=== PATIENT | female | born 1985 | race Caucasian/White ===

== ENCOUNTER 2016-07-31 23:33 | Emergency (ER) ==
[2016-07-31 23:43] VITALS: BP 119/79; TEMP 98.7; BMI 20.7
[2016-07-31] MEDS ORDERED: PHENERGAN 25 MG/ML VIAL IM STA (23:49)
[2016-07-31] MEDS ORDERED: MORPHINE 4 MG/ML SYRINGE IM STA (23:49)
[2016-08-01 00:07] LABS: BASOPHILS % (AUTO) 0.4 % (0.0-3.0); EOSINOPHILS # (AUTO) 0.1 K/ul (0.0-0.7); EOSINOPHILS % (AUTO) 1.3 % (0.0-7.0); HEMATOCRIT 39.8 % (37.0-47.0); HEMOGLOBIN 13.5 g/dl (12.0-16.0); IMMATURE GRANULOCYTE % (AUTO) 0.1 % (0.0-5.0); LYMPHOCYTES # (AUTO) 2.4 K/uL (0.60-3.4); LYMPHOCYTES % (AUTO) 32.3 (10.0-50.0); MEAN CORPUSCULAR HEMOGLOBIN 30.1 pg (27.0-31.0); MEAN CORPUSCULAR HGB CONC 33.9 (31.8-35.4); MEAN CORPUSCULAR VOLUME 88.8 fl (81.0-99.0); MONOCYTES # (AUTO) 0.5 K/uL (0.4-2.0); MONOCYTES % (AUTO) 6.6 (0-10); NEUTROPHILS # (AUTO) 4.5 K/ul (2.0-6.9); NEUTROPHILS % (AUTO) 59.3; PLATELET COUNT 265 10^3/uL (140-440); RED BLOOD COUNT 4.48 10^6/ul (4.20-5.40); WHITE BLOOD COUNT 7.55 K/ul (4.6-10.2)
[2016-08-01 00:08] LABS: BILIRUBIN,URINE Negative (NEGATIVE); KETONES,URINE Negative (NEGATIVE); LEUKOCYTE ESTERASE ,URINE Negative (NEGATIVE); NITRITE,URINE Negative (NEGATIVE); PH,URINE 5.5 (5-9); PROTEIN,URINE Negative (NEGATIVE); URINE, BLOOD Trace-intact (NEGATIVE)
[2016-08-01 00:09] LABS: ADD URINE MICROSCOPIC YES
[2016-08-01 00:14] LABS: URINE PREGNANCY INTERNAL QC INTERNAL QC VALID
[2016-08-01 00:27] LABS: ALBUMIN 4.1 g/dL (3.4-5.0); ALBUMIN/GLOBULIN RATIO 1.46; ANION GAP 13.6; BILIRUBIN,TOTAL 0.24 mg/dL (0.00-1.20); BUN/CREATININE RATIO 18.42; CALCIUM 9.4 mg/dL (8.2-10.2); CREATININE 0.76 mg/dL (0.60-1.30); POTASSIUM 3.6 mmol/L (3.5-5.10); TOTAL PROTEIN 6.9 g/dL (6.4-8.2)
[2016-08-01 00:40] LABS: ERYTHROCYTE SEDIMENTATION RATE 7 mm/hr (0-20); ESR INTERNAL QC INTERNAL QC VALID
--- NOTE | 2016-08-01 00:55 | CT ---
EXAM: CT of the abdomen and pelvis without contrast. HISTORY: Abdominal pain. PROCEDURE: Contiguous axial CT images of the abdomen and pelvis without contrast with coronal and s agittal reformats. FINDINGS: The liver, gallbladder, pancreas, spleen, adrenal glands and kidneys are normal in appear ance. The abdominal aorta is normal in appearance. There is a partial right colectomy. There is f ecal stasis in the colon. No bowel obstruction. No free fluid or free air in the abdomen or pelvis . The bladder is minimally filled with no abnormality identified. Uterus is unremarkable. The bon y structures and soft tissues are unremarkable. Impression: Fecal stasis in the colon. Partial right colectomy.
--- NOTE | 2016-08-01 01:10 | ED.PDOC ---
General ED Provider: Dr. ADOLFO SAMANIEGO-ER Chief Complaint: Abdominal Pain Stated Complaint: im hurting--im scheduled to get hyst in 2 weeks Time Seen by Physician: 23:40 Mode of Arrival: Walk-In Information Source: Patient, Family Exam Limitations: No limitations Primary Care Provider: ADOLFO SAMANIEGO Nursing and Triage Documentation Reviewed and Agree: Yes GI Complaint Exam - Abdominal Pain Complaint/Exam Onset: Gradual Duration: several hours Symptoms Are: Still present Timing: Constant Initial Severity: Mild Current Severity: Mild Location of Pain: Diffuse Character: Reports: Dull, Aching Aggravating: Reports: None Alleviating: Reports: None Associated Signs and Symptoms: Denies: Diaphoresis, Fever, Cough, Chest pain, Dizziness, Back pain, Constipation, Blood in stool, Dysuria, Urinary frequency, Decreased urine output, Decreased appetite, Vaginal bleeding, Nausea, Vomiting, Diarrhea, Sore throat, Decreased activity Related History: Reports: Similar episode Ovarian Torsion Risk Factors: Reports: Reproductive age Surgical Obstruction Risk Factors: Reports: Prior abdominal surgery Related Surgical History: Reports: Appendectomy, Bowel Resection Patient Rh Status: Unknown Abdominal Findings: Present: None Differential Diagnoses: Constipation, Diverticulitis, Pancreatitis, Renal Colic , Ureteral Stone, UTI Review of Systems - Review Of Systems Constitutional: Reports: No symptoms Eyes: Reports: No symptoms Ears, Nose, Mouth, Throat: Reports: No symptoms Respiratory: Reports: No symptoms Cardiac: Reports: No symptoms GI: Reports: Abdominal pain : Reports: No symptoms Musculoskeletal: Reports: No symptoms Skin: Reports: No symptoms Neurological: Reports: No symptoms Endocrine: Reports: No symptoms Hematologic/Lymphatic: Reports: No symptoms All Other Systems: Reviewed and Negative Past Medical History - Past Medical History Previously Healthy: No Endocrine: Reports: None Cardiovascular: Reports: None Respiratory: Reports: None Hematological: Reports: None Gastrointestinal: Reports: Other (bowel obstruction history) Genitourinary: Reports: None Neuro/Psych: Reports: Migraine (05/28/[address] head), Anxiety, Depression, Bipolar Disorder Musculoskeletal: Reports: None Cancer: Reports: None Last Menstrual Period: JUL 17 2106 Other Pertinent Past Medical History: fibromyalgia - Surgical History General Surgical History: Reports: , Other (BOWEL OBSTRUCTION, SMALL INTESTINE PARTIALLY REMOVED). Denies: Hysterectomy ( ablation ) - Family History Family History: Reports: Unknown - Social History Smoking Status: Former smoker Hx Substance Use: No Alcohol Screening: Occasionally Lives: With family - Immunizations Tetanus Shot up to Date: Yes Physical Exam - Physical Exam Appearance: Well-appearing, No pain distress, Well-nourished Pain Distress: Mild Eyes: LANCE, EOMI, Conjunctiva clear ENT: Ears normal Neck: Supple Respiratory: Airway patent, Breath sounds clear, Breath sounds equal, Respirations nonlabored Cardiovascular: RRR, Pulses normal, No rub, No murmur GI/: Soft, Nontender, No masses, Bowel sounds normal, No Organomegaly Musculoskeletal: Normal strength, ROM intact, No edema, No calf tenderness Skin: Warm, Dry, Normal color Neurological: Sensation intact, Motor intact, Reflexes intact, Cranial nerves intact, Alert, Oriented Psychiatric: Affect appropriate Interpretation - Radiology Interpretation Radiology Interpretation By: Radiologist Radiology Results: Positive Exam Interpreted: CT Scan Re-Evaluation - Re-Evaluation Time of Re-Evaluation: 01:11 Status: Improved Vital Signs Stable: Yes Pain Level: 2 Appearance: NAD Lungs: Clear Skin: Warm and Dry Neuro: Alert and Oriented X3 CV: RRR Critical Care Note - Critical Care Note Total Time (mins): 0 Course - Course Hematology/Chemistry: 07/31/16 23:55 07/31/16 23:55 Orders, Labs, Meds: Lab Review 07/31/16 23:55 WBC 7.55 RBC 4.48 Hgb 13.5 Hct 39.8 MCV 88.8 MCH 30.1 MCHC 33.9 RDW Coeff of Gem 12.8 Plt Count 265 Immature Gran % (Auto) 0.1 Neut % (Auto) 59.3 Lymph % (Auto) 32.3 Davison % (Auto) 6.6 Eos % (Auto) 1.3 Baso % (Auto) 0.4 Immature Gran # (Auto) 0.0 Neut # 4.5 Lymph # 2.4 Davison # 0.5 Eos # 0.1 Baso # 0.0 ESR 7 Sodium 142 Potassium 3.6 Chloride 108 H Carbon Dioxide 24 Anion Gap 13.6 BUN 14 Creatinine 0.76 Estimated GFR (MDRD) 89.00 BUN/Creatinine Ratio 18.42 Glucose 94 Calcium 9.4 Total Bilirubin 0.24 AST 12 L ALT 10 L Alkaline Phosphatase 51 Total Protein 6.9 Albumin 4.1 Globulin 2.8 Albumin/Globulin Ratio 1.46 Amylase 49 Lipase 23 Urine Color Yellow Urine Clarity Clear Urine pH 5.5 Ur Specific [place] 1.025 Urine Protein Negative Urine Glucose (UA) Negative Urine Ketones Negative Urine Blood Trace-intact Urine Nitrite Negative Urine Bilirubin Negative Urine Urobilinogen 0.2 Ur Leukocyte Esterase Negative Urine Microscopic RBC 2-5 Ur Squamous Epith Cells 10-20 Hyaline Casts 10-20 RBC Casts 5-10 Urine Test Negative Orders Category Date Time Status AMYLASE Stat LAB 07/31/16 23:55 Completed CBC W/ AUTO DIFF Stat LAB 07/31/16 23:55 Completed COMPREHENSIVE METABOLIC PANEL Stat LAB 07/31/16 23:55 Completed ESR Stat LAB 07/31/16 23:55 Completed LIPASE Stat LAB 07/31/16 23:55 Completed URINALYSIS C & S IF INDICATED Stat LAB 07/31/16 23:55 Completed URINE Stat LAB 07/31/16 23:55 Completed Morphine Sulfate [Morphine 4 mg/ml Syringe] MEDS 07/31/16 23:49 Discontinued 4 mg IM ONCE STA Promethazine HCl [Phenergan 25 mg/ml Vial] MEDS 07/31/16 23:49 Discontinued 25 mg IM ONCE STA CT ABDOMEN/PELVIS WO CONTRAST Stat RADS 07/31/16 23:49 Completed Medications Discontinued Medications Generic Name Dose Route Start Last Admin Trade Name Freq PRN Reason Stop Dose Admin Morphine Sulfate 4 mg 07/31/16 23:49 08/01/16 00:04 Morphine 4 Mg/Ml Syringe IM 07/31/16 23:50 4 mg ONCE STA Administration Promethazine HCl 25 mg 07/31/16 23:49 08/01/16 00:04 Phenergan 25 Mg/Ml Vial IM 07/31/16 23:50 25 mg ONCE STA Administration Vital Signs: Temp Pulse Resp BP Pulse Ox 07/31/16 23:34 98.7 F 96 H 18 119/79 100 Departure - Departure Time of Disposition: 01:11 Disposition: HOME SELF-CARE Discharge Problem: Pain in pelvis Constipation Qualifiers: Constipation type: unspecified constipation type Qualifier Code: (K59.00) Constipation, unspecified Instructions: Pelvic Pain in Women (ED), Pelvic Pain (ED) Condition: Good Pt referred to PMD for follow-up: Yes Additional Instructions: f/u with obstetrician gynecologist Allergies/Adverse Reactions: Allergies fluoxetine [From Prozac] Adverse Reaction (Verified 07/31/16 23:44) SUICIDAL haloperidol [From Haldol] Adverse Reaction (Verified 07/31/16 23:44) STROKE SYMPTOMS ketorolac tromethamine [From Toradol] Adverse Reaction (Verified 07/31/16 23:44) "MAKES ME MEAN" sumatriptan [From Imitrex] Adverse Reaction (Verified 07/31/16 23:44) PANIC ATTACK SYMPTOMS Home Medications: Ambulatory Orders Topiramate [Topamax] 25 mg PO DAILY 07/21/16 Disposition Discussed With: Patient, Family
[2016-08-01] MEDS ORDERED: BENTYL IM STA (01:12)
[2016-08-01] MEDS ORDERED: DILAUDID 1 MG/ML SYRINGE IM STA (01:12)
[2016-08-01] MEDS ORDERED: MILK OF MAGNESIA PO STA (01:13)
== END 2016-08-01 02:07 | disposition home or self-care (01) ==
LOC: ED 23:33
DX: K59.00 Constipation, unspecified (principal); R10.2 Pelvic and perineal pain
CPT/HCPCS: 36415; 80053; 81001; 81025; 82150; 83690; 85025; 85651; 96372; 99283

== ENCOUNTER 2016-08-03 21:19 | Emergency (ER) ==
[2016-08-03 21:30] VITALS: BP 129/84; TEMP 99.2; BMI 21.7
[2016-08-03] MEDS ORDERED: DILAUDID 1 MG/ML SYRINGE IM STA (21:47)
[2016-08-03] MEDS ORDERED: BENADRYL IM STA (21:47)
[2016-08-03] MEDS ORDERED: PHENERGAN 25 MG/ML VIAL IM STA (21:47)
--- NOTE | 2016-08-03 21:51 | ED.PDOC ---
General ED Provider: Dr. SUZY CRUM Chief Complaint: Headache Stated Complaint: Hurting for 4 days, ran out of Topamax. this time it is bad Time Seen by Physician: 21:49 Mode of Arrival: Walk-In Information Source: Patient Primary Care Provider: ADOLFO SAMANIEGO Nursing and Triage Documentation Reviewed and Agree: Yes Neurological Complaint Exam - Headache Complaint/Exam Onset: Gradual Symptoms Are: Still present Timing: Constant Episodes Lasting: Days Worst Headache Ever: No Initial Severity: Severe Current Severity: Severe Location: Left, Frontal Character: Reports: Throbbing, Typical headache, Migraine Aggravating: Reports: Bright lights Alleviating: Reports: None Associated Signs and Symptoms: Denies: Dizziness, Seizure, Nausea, Vomiting, Sinus pressure, Fever, Neck pain, Neck stiffness, Decreased LOC, Visual changes Related History: Reports: Similar episode Related Surgical History: Reports: None SAH Risk Factors: Reports: None Meningitis Risk Factors: Reports: None SDH Risk Factors: Reports: None Temporal Arteritis Risk Factors: Reports: None Normal Head CT Within Last 12 Months: Yes Temporal Artery Tenderness: Present: None Sinus Tenderness: Present: None TMJ Tenderness: Present: None Meningeal Signs Positive: No Pain on Passive Flexion-Positive Kernig's: No ROM Limited In: No Limitiations Focal Weakness: Present: None Focal Sensory Loss: Present: None Gait: Normal Gag Reflex Present: Yes [id number]: Normal Findings Romberg Test Positive: No Babinski Sign: Negative Right, Negative Left Differential Diagnoses: Migraine Review of Systems - Review Of Systems Constitutional: Reports: Weakness Eyes: Reports: No symptoms Ears, Nose, Mouth, Throat: Reports: No symptoms Respiratory: Reports: No symptoms Cardiac: Reports: No symptoms GI: Reports: No symptoms : Reports: No symptoms Musculoskeletal: Reports: No symptoms Skin: Reports: No symptoms Neurological: Reports: Headache Endocrine: Reports: No symptoms Hematologic/Lymphatic: Reports: No symptoms All Other Systems: Reviewed and Negative Past Medical History - Past Medical History Previously Healthy: No Endocrine: Reports: None Cardiovascular: Reports: None Respiratory: Reports: None Hematological: Reports: None Gastrointestinal: Reports: Other (bowel obstruction history) Genitourinary: Reports: None Neuro/Psych: Reports: Migraine (05/28/[address] head), Anxiety, Depression, Bipolar Disorder Musculoskeletal: Reports: None Cancer: Reports: None Last Menstrual Period: JUL 17 2016 IS SCHEDULED FOR HYJul Other Pertinent Past Medical History: fibromyalgia - Surgical History General Surgical History: Reports: , Other (BOWEL OBSTRUCTION, SMALL INTESTINE PARTIALLY REMOVED). Denies: Hysterectomy ( ablation ) - Family History Family History: Reports: Unknown - Social History Smoking Status: Former smoker Hx Substance Use: No Alcohol Screening: Occasionally - Immunizations Tetanus Shot up to Date: Yes Physical Exam - Physical Exam Appearance: Well-appearing, No pain distress, Well-nourished Eyes: LANCE, EOMI, Conjunctiva clear ENT: Ears normal, Nose normal, Oropharynx normal Respiratory: Airway patent, Breath sounds clear, Breath sounds equal, Respirations nonlabored Cardiovascular: RRR, Pulses normal, No rub, No murmur GI/: Soft, Nontender, No masses, Bowel sounds normal, No Organomegaly Musculoskeletal: Normal strength, ROM intact, No edema, No calf tenderness Skin: Warm, Dry, Normal color Neurological: Sensation intact, Motor intact, Reflexes intact, Cranial nerves intact, Alert, Oriented Psychiatric: Affect appropriate, Mood appropriate Critical Care Note - Critical Care Note Total Time (mins): 0 Course - Course Orders, Labs, Meds: Orders Category Date Time Status URINALYSIS C & S IF INDICATED Stat LAB 08/03/16 21:47 Uncollected Diphenhydramine Inj [Benadryl] MEDS 08/03/16 21:47 Discontinued 25 mg IM ONCE STA Hydromorphone HCl [Dilaudid 1 mg/ml Syringe] MEDS 08/03/16 21:47 Discontinued 1 mg IM ONCE STA Promethazine HCl [Phenergan 25 mg/ml Vial] MEDS 08/03/16 21:47 Discontinued 12.5 mg IM ONCE STA CT HEAD W/O CONTRAST Stat RADS 08/03/16 21:47 Ordered Medications Discontinued Medications Generic Name Dose Route Start Last Admin Trade Name Freq PRN Reason Stop Dose Admin Diphenhydramine HCl 25 mg 08/03/16 21:47 Benadryl IM 08/03/16 21:48 ONCE STA Hydromorphone HCl 1 mg 08/03/16 21:47 Dilaudid 1 Mg/Ml Syringe IM 08/03/16 21:48 ONCE STA Promethazine HCl 12.5 mg 08/03/16 21:47 Phenergan 25 Mg/Ml Vial IM 08/03/16 21:48 ONCE STA Vital Signs: Temp Pulse Resp BP Pulse Ox 08/03/16 21:20 99.2 F 105 H 16 129/84 98 Departure - Departure Time of Disposition: 22:10 Disposition: HOME SELF-CARE Discharge Problem: Migraine headache Qualifiers: Migraine type: without aura Status migrainosus presence: without status migrainosus Intractability: not intractable Qualifier Code: (G43.009) Migraine without aura, not intractable, without status migrainosus Instructions: Migraine Headache (ED) Condition: Stable Pt referred to PMD for follow-up: Yes Additional Instructions: Needs f/u with PMD in view of frequent headache Patient can Topamax in 2-3 days( per patient) Allergies/Adverse Reactions: Allergies fluoxetine [From Prozac] Adverse Reaction (Verified 08/03/16 21:29) SUICIDAL haloperidol [From Haldol] Adverse Reaction (Verified 08/03/16 21:29) STROKE SYMPTOMS ketorolac tromethamine [From Toradol] Adverse Reaction (Verified 08/03/16 21:29) "MAKES ME MEAN" sumatriptan [From Imitrex] Adverse Reaction (Verified 08/03/16 21:29) PANIC ATTACK SYMPTOMS Home Medications: Ambulatory Orders Topiramate [Topamax] 25 mg PO DAILY 07/21/16 Disposition Discussed With: Patient
[2016-08-03 22:12] LABS: ADD URINE MICROSCOPIC NO; BILIRUBIN,URINE Negative (NEGATIVE); KETONES,URINE Negative (NEGATIVE); LEUKOCYTE ESTERASE ,URINE Negative (NEGATIVE); NITRITE,URINE Negative (NEGATIVE); PROTEIN,URINE Negative (NEGATIVE); URINE, BLOOD Negative (NEGATIVE)
--- NOTE | 2016-08-03 22:36 | CT ---
EXAM: CT head without contrast. HISTORY: Headaches. PROCEDURE: Contiguous axial CT images of the head without contrast with coronal and sagittal reform ats. 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 The ventricles are wit hin normal limits in size. The basal cisterns are normal in size and configuration. No evidence of mass or midline shift. No intracranial hemorrhage or evidence of large vessel infarct. No extra-a xial fluid collection. The paranasal sinuses and mastoid air cells are well-aerated. Impression: Negative CT of the head.
== END 2016-08-03 22:49 | disposition home or self-care (01) ==
LOC: ED 21:19
DX: G43.009 Migraine without aura, not intractable, without status migrainosus (principal)
CPT/HCPCS: 81001; 96372; 99283

== ENCOUNTER 2016-08-06 01:32 | Emergency (ER) ==
[2016-08-06 01:32] VITALS: BMI 21.7
[2016-08-06 01:37] VITALS: BP 134/89; TEMP 98.4
--- NOTE | 2016-08-06 01:56 | ED.PDOC ---
General ED Provider: Dr. ADOLFO SAMANIEGO-ER Chief Complaint: Headache Stated Complaint: im stressed out--priti got a terrible macias and i am throwing up Time Seen by Physician: 01:54 Mode of Arrival: Walk-In Information Source: Patient Exam Limitations: No limitations Primary Care Provider: ADOLFO SAMANIEGO Nursing and Triage Documentation Reviewed and Agree: Yes Neurological Complaint Exam - Headache Complaint/Exam Onset: Gradual Duration: 24hrs Symptoms Are: Still present Timing: Constant Worst Headache Ever: No Initial Severity: Mild Current Severity: Moderate Location: Diffuse Character: Reports: Dull, Throbbing, Typical headache, Migraine Aggravating: Reports: Bright lights Alleviating: Reports: None Associated Signs and Symptoms: Reports: Nausea, Vomiting. Denies: Dizziness, Seizure, Sinus pressure, Fever, Neck pain, Neck stiffness, Decreased LOC, Visual changes Related History: Reports: Similar episode Related Surgical History: Reports: None SAH Risk Factors: Reports: None Meningitis Risk Factors: Reports: None SDH Risk Factors: Reports: None Temporal Arteritis Risk Factors: Reports: Female, Normal Head CT Within Last 12 Months: Yes Fundoscopic Exam: Present: Normal Findings Papilledema Present: No Temporal Artery Tenderness: Present: None Sinus Tenderness: Present: None TMJ Tenderness: Present: None Glascow Coma Scale (see protocol): 15 Meningeal Signs Positive: No Pain on Passive Flexion-Positive Kernig's: No ROM Limited In: No Limitiations Focal Weakness: Present: None Focal Sensory Loss: Present: None Gait: Normal Nystagmus Present: No Gag Reflex Present: Yes [id number]: Normal Findings Romberg Test Positive: No Babinski Sign: Negative Right, Negative Left Heel to Toe Normal: No Differential Diagnoses: Migraine Review of Systems - Review Of Systems Constitutional: Reports: No symptoms Eyes: Reports: No symptoms Ears, Nose, Mouth, Throat: Reports: No symptoms Respiratory: Reports: No symptoms Cardiac: Reports: No symptoms GI: Reports: Nausea, Vomiting : Reports: No symptoms Musculoskeletal: Reports: No symptoms Skin: Reports: No symptoms Neurological: Reports: Headache Endocrine: Reports: No symptoms Hematologic/Lymphatic: Reports: No symptoms All Other Systems: Reviewed and Negative Past Medical History - Past Medical History Previously Healthy: No Endocrine: Reports: None Cardiovascular: Reports: None Respiratory: Reports: None Hematological: Reports: None Gastrointestinal: Reports: Other (bowel obstruction history) Genitourinary: Reports: None Neuro/Psych: Reports: Migraine (05/28/[address] head), Anxiety, Depression, Bipolar Disorder Musculoskeletal: Reports: None Cancer: Reports: None Last Menstrual Period: JUL 17 2016 Other Pertinent Past Medical History: fibromyalgia - Surgical History General Surgical History: Reports: , Other (BOWEL OBSTRUCTION, SMALL INTESTINE PARTIALLY REMOVED). Denies: Hysterectomy ( ablation ) - Family History Family History: Reports: Unknown - Social History Smoking Status: Former smoker Hx Substance Use: No Alcohol Screening: Occasionally Lives: With family - Immunizations Tetanus Shot up to Date: Yes Physical Exam - Physical Exam Appearance: Well-appearing, No pain distress, Well-nourished Pain Distress: Moderate Eyes: LANCE, EOMI, Conjunctiva clear ENT: Ears normal, Nose normal, Oropharynx normal Neck: Supple Respiratory: Airway patent Cardiovascular: RRR GI/: Soft, Nontender, No masses, Bowel sounds normal, No Organomegaly Musculoskeletal: Normal strength, ROM intact, No edema, No calf tenderness Skin: Warm, Dry, Normal color Neurological: Sensation intact, Motor intact, Reflexes intact, Cranial nerves intact, Alert, Oriented Psychiatric: Affect appropriate, Mood appropriate Critical Care Note - Critical Care Note Total Time (mins): 0 Course - Course Orders, Labs, Meds: Orders Category Date Time Status Hydromorphone HCl/Pf [Dilaudid 2 mg/ml Syringe] MEDS 08/06/16 01:53 Stat 2 mg IM ONCE STA Promethazine HCl [Phenergan 25 mg/ml Vial] MEDS 08/06/16 01:53 Stat 25 mg IM ONCE STA Medications Generic Name Dose Route Start Last Admin Trade Name Mauricioq PRN Reason Stop Dose Admin Hydromorphone HCl 2 mg 08/06/16 01:53 Dilaudid 2 Mg/Ml Syringe IM 08/06/16 01:54 ONCE STA Promethazine HCl 25 mg 08/06/16 01:53 Phenergan 25 Mg/Ml Vial IM 08/06/16 01:54 ONCE STA Vital Signs: Temp Pulse Resp BP Pulse Ox 08/06/16 01:32 98.4 F 97 H 18 134/89 100 Departure - Departure Time of Disposition: 01:56 Disposition: HOME SELF-CARE Discharge Problem: Migraine Qualifiers: Migraine type: unspecified Status migrainosus presence: without status migrainosus Intractability: not intractable Qualifier Code: (G43.909) Migraine, unspecified, not intractable, without status migrainosus Instructions: Migraine Headache (ED) Condition: Good Pt referred to PMD for follow-up: Yes Allergies/Adverse Reactions: Allergies fluoxetine [From Prozac] Adverse Reaction (Verified 08/06/16 01:36) SUICIDAL haloperidol [From Haldol] Adverse Reaction (Verified 08/06/16 01:36) STROKE SYMPTOMS ketorolac tromethamine [From Toradol] Adverse Reaction (Verified 08/06/16 01:36) "MAKES ME MEAN" sumatriptan [From Imitrex] Adverse Reaction (Verified 08/06/16 01:36) PANIC ATTACK SYMPTOMS Home Medications: Ambulatory Orders Topiramate [Topamax] 25 mg PO DAILY 07/21/16 Disposition Discussed With: Patient
[2016-08-06] MEDS: DILAUDID 2 MG/ML SYRINGE IM STA (02:04)
[2016-08-06] MEDS: PHENERGAN 25 MG/ML VIAL IM STA (02:05)
== END 2016-08-06 02:31 | disposition home or self-care (01) ==
LOC: ED 01:32
DX: G43.909 Migraine, unspecified, not intractable, without status migrainosus (principal)
CPT/HCPCS: 96361; 96365; 96372; 96376; 99283

== ENCOUNTER 2016-08-06 10:19 | Emergency (ER) ==
[2016-08-06 10:19] VITALS: BMI 21.7
[2016-08-06 10:22] VITALS: BP 121/81; TEMP 97.7
--- NOTE | 2016-08-06 10:31 | ED.PDOC ---
General ED Provider: Dr. NESTOR GORMAN JR Chief Complaint: Headache Stated Complaint: states has a migraine that started 3 days ago. was seen in this er last night at midnight for same thing and received dilaudid, phenergan, and benadryl [ End ]3 days 97.7 110 18 97% 121/81 9/10 tubes removed-10/2015-c- section--appy--sm intestine surg due to bowel obstruction. UTERINE ABLATION, COLONOSCOPY AND ENDOSCOPY 2 WEEKS. [ End ]BOWEL OBSTRUCTION, FIBROMYALGIA. htn depr anx migr bipolar. No: SCHEDULED FOR HYST Jul. lrft frontal nvd. : 08/06/16 : im stressed out--priti got a terrible macias and i am throwing up Dilaudid 2 Mg/Ml Syringe Promethazine HCl 25 mg. : Other (bowel obstruction history): Migraine (05/28/[address] head), Anxiety, Depression, Bipolar Disorder: fibromyalgia;;. Migraine: unspecified. : 08/03/16 : Hurting for 4 days, ran out of MiTú. this time it is bad. CT HEAD W/O CONTRAST StatRADS 08/03/16 21:47. Benadryl IM 08/03/16 21:48. Dilaudid 1 Mg/Ml Syringe IM 21:48. Phenergan 25 Mg/Ml Vial IM 08/03/16. 08/03/16. : Migraine Headache (ED). [From Prozac]SUICIDAL. [From Haldol]STROKE SYMPTOMS. [From Toradol] "MAKES ME MEAN". [From Imitrex]PANIC ATTACK SYMPTOMS. : 08/01/16 : Abdominal Pain: im hurting--im scheduled to get hyst in 2 weeks: Other (bowel obstruction history): Migraine (05/28/[address] head), Anxiety, Depression, Bipolar Disorder: Positive: CT Scan-fecal stasis. Constipation, unspecified: Pelvic Pain in Women (ED), Pelvic Pain (ED). : 07/22/16 : Nausea/Vomiting HypokalemiaUTI (urinary tract infection): Urinary Tract Infection in Women (ED) bactdrim ds bid x 7. patient statew fluidsw benadryl phenergan and dilaudid always help, consideration of reglan not discussed Time Seen by Physician: 10:30 Mode of Arrival: Walk-In Information Source: Patient Exam Limitations: No limitations Primary Care Provider: ADOLFO SAMANIEGO Nursing and Triage Documentation Reviewed and Agree: No Review of Systems - Review Of Systems Constitutional: Reports: No symptoms Eyes: Reports: No symptoms Ears, Nose, Mouth, Throat: Reports: No symptoms Respiratory: Reports: No symptoms Cardiac: Reports: No symptoms GI: Reports: No symptoms : Reports: No symptoms Musculoskeletal: Reports: No symptoms Skin: Reports: No symptoms Neurological: Reports: Headache Endocrine: Reports: No symptoms Hematologic/Lymphatic: Reports: No symptoms All Other Systems: Other Past Medical History - Past Medical History Previously Healthy: No Endocrine: Reports: None Cardiovascular: Reports: None Respiratory: Reports: None Hematological: Reports: None Gastrointestinal: Reports: Other (bowel obstruction history) Genitourinary: Reports: None Neuro/Psych: Reports: Migraine (05/28/[address] head), Anxiety, Depression, Bipolar Disorder Musculoskeletal: Reports: None Cancer: Reports: None Last Menstrual Period: jul 17 Other Pertinent Past Medical History: fibromyalgia - Surgical History General Surgical History: Reports: , Other (BOWEL OBSTRUCTION, SMALL INTESTINE PARTIALLY REMOVED). Denies: Hysterectomy ( ablation ) - Family History Family History: Reports: Unknown - Social History Smoking Status: Former smoker Hx Substance Use: No Alcohol Screening: Occasionally Physical Exam - Physical Exam Appearance: Well-appearing Ill-appearing: Mild Pain Distress: Mild Eyes: LANCE, EOMI, Conjunctiva clear ENT: Ears normal, Nose normal, Oropharynx normal Neck: Supple Respiratory: Airway patent, Breath sounds clear, Breath sounds equal, Respirations nonlabored Cardiovascular: RRR, Pulses normal, No rub, No murmur GI/: Soft, Nontender, No masses, Bowel sounds normal, No Organomegaly Musculoskeletal: Normal strength, ROM intact, No edema, No calf tenderness Skin: Warm, Dry, Normal color Neurological: Sensation intact, Motor intact, Reflexes intact, Cranial nerves intact, Alert, Oriented Psychiatric: Affect appropriate, Mood appropriate Re-Evaluation - Re-Evaluation Time of Re-Evaluation: 13:25 Status: Improved (deneis improvement discussed rebound headaches and dilaudid causing same, also is on fioricet and tylenol which I note can also cause headaches) Vital Signs Stable: Yes Appearance: NAD Lungs: Clear Skin: Warm and Dry Neuro: Alert and Oriented X3 CV: RRR Critical Care Note - Critical Care Note Total Time (mins): 0 Course - Course Orders, Labs, Meds: Orders Category Date Time Status IV [ED IV/MEDIPORT/POWERPORT] .ONCE EMERGENCY 08/06/16 10:53 Active 0.9 % Sodium Chloride [Saline Flush] MEDS 08/06/16 10:53 Discontinued 1 syr IVF PRN PRN Diphenhydramine Inj [Benadryl] MEDS 08/06/16 11:29 Discontinued 25 mg IVP ONCE STA Hydromorphone HCl/Pf [Dilaudid 2 mg/ml Syringe] MEDS 08/06/16 13:07 Discontinued 2 mg IVP ONCE STA Metoclopramide HCl [Reglan] MEDS 08/06/16 12:07 Discontinued 10 mg IVP ONCE STA Promethazine HCl [Phenergan 25 mg/ml Vial] MEDS 08/06/16 11:32 Discontinued 25 mg .ROUTE .STK-MED ONE Promethazine HCl [Phenergan 25 mg/ml Vial] 25 mg MEDS 08/06/16 11:29 Discontinued 0.9 % Sodium Chloride [Sodium Chloride] 50 ml IV ONCE Sodium Chloride 0.9% [Sodium Chloride] 1,000 ml MEDS 08/06/16 11:07 Discontinued IV BOLUS Sodium Chloride 0.9% [Sodium Chloride] 1,000 ml MEDS 08/06/16 12:33 Active IV BOLUS Medications Generic Name Dose Route Start Last Admin Trade Name Freq PRN Reason Stop Dose Admin Sodium Chloride 1,000 mls @ 1,000 mls/hr 08/06/16 12:33 08/06/16 12:40 Sodium Chloride IV 08/06/16 13:32 1,000 mls/hr BOLUS STA Administration Discontinued Medications Generic Name Dose Route Start Last Admin Trade Name Freq PRN Reason Stop Dose Admin Diphenhydramine HCl 25 mg 08/06/16 11:29 08/06/16 11:47 Benadryl IVP 08/06/16 11:30 25 mg ONCE STA Administration Hydromorphone HCl 2 mg 08/06/16 13:07 08/06/16 13:13 Dilaudid 2 Mg/Ml Syringe IVP 08/06/16 13:08 2 mg ONCE STA Administration Sodium Chloride 1,000 mls @ 1,000 mls/hr 08/06/16 11:07 08/06/16 11:48 Sodium Chloride IV 08/06/16 12:06 1,000 mls/hr BOLUS STA Administration Promethazine HCl 25 mg/ Sodium 51 mls @ 75 mls/hr 08/06/16 11:29 08/06/16 11: 48 Chloride IV 08/06/16 12:09 75 mls/hr ONCE STA Administration Metoclopramide HCl 10 mg 08/06/16 12:07 08/06/16 12:21 Reglan IVP 08/06/16 12:08 10 mg ONCE STA Administration Sodium Chloride 1 syr 08/06/16 10:53 08/06/16 11:48 Saline Flush IVF 1 syr PRN PRN Administration To flush IV Vital Signs: Temp Pulse Resp BP Pulse Ox 08/06/16 10:19 97.7 F 110 H 18 121/81 97 Departure - Departure Time of Disposition: 13:21 Disposition: HOME SELF-CARE Discharge Problem: Headache Instructions: Migraine Headache (ED) Condition: Good Pt referred to PMD for follow-up: Yes Additional Instructions: follow up with PMD discuss specialist evaluation for headaches caution with opiates- may cause rebound headache (as any pain medicine will if used too often) special caution to take less than maximum dose on bottle of Tylenol note that fioricet if used more than two or three days in a row is known for causing headaches Home rest, consider written communications if unable to communicate with relatives Allergies/Adverse Reactions: Allergies fluoxetine [From Prozac] Adverse Reaction (Verified 08/06/16 10:23) SUICIDAL haloperidol [From Haldol] Adverse Reaction (Verified 08/06/16 10:23) STROKE SYMPTOMS ketorolac tromethamine [From Toradol] Adverse Reaction (Verified 08/06/16 10:23) "MAKES ME MEAN" sumatriptan [From Imitrex] Adverse Reaction (Verified 08/06/16 10:23) PANIC ATTACK SYMPTOMS Home Medications: Ambulatory Orders Topiramate [Topamax] 25 mg PO DAILY 07/21/16
[2016-08-06] MEDS: PHENERGAN 25 MG/ML VIAL ONE (11:47)
[2016-08-06] MEDS: BENADRYL IVP STA (11:47)
[2016-08-06] MEDS: SODIUM CHLORIDE 1,000 ML IV STA ×2 (11:48→12:40)
[2016-08-06] MEDS: PHENERGAN 25 MG/ML VIAL 25 MG in SODIUM CHLORIDE 50 ML IV STA (11:48)
[2016-08-06] MEDS: REGLAN IVP STA (12:21)
[2016-08-06] MEDS ORDERED: DILAUDID 1 MG/ML SYRINGE IVP STA (13:02)
[2016-08-06] MEDS: DILAUDID 2 MG/ML SYRINGE IVP STA (13:13)
== END 2016-08-06 13:36 | disposition home or self-care (01) ==
LOC: ED 10:19
DX: G43.909 Migraine, unspecified, not intractable, without status migrainosus (principal)
CPT/HCPCS: 96361; 96365; 96376; 99283

== ENCOUNTER 2016-08-22 20:27 | Emergency (ER) ==
[2016-08-22 20:32] VITALS: BP 120/86; TEMP 99.3; BMI 20.2
--- NOTE | 2016-08-22 20:55 | ED.PDOC ---
General ED Provider: Dr. SUZY CRUM Chief Complaint: Abdominal Pain Stated Complaint: Hurting in the right side of the belly since noon, hurts to breath. no fever or chills. had Robotic hysterectomy, 10 days ago. Time Seen by Physician: 20:53 Mode of Arrival: Walk-In Information Source: Patient Primary Care Provider: ADOLFO SAMANIEGO Nursing and Triage Documentation Reviewed and Agree: Yes GI Complaint Exam - Abdominal Pain Complaint/Exam Onset: Gradual Symptoms Are: Still present Timing: Constant Initial Severity: Mild Current Severity: Mild Location of Pain: RLQ Radiates To: Reports: Back Character: Reports: Aching, Throbbing Aggravating: Reports: Movement Alleviating: Reports: None Associated Signs and Symptoms: Denies: Diaphoresis, Fever, Cough, Chest pain, Dizziness, Back pain, Constipation, Blood in stool, Dysuria, Urinary frequency, Decreased urine output, Decreased appetite, Vaginal bleeding, Vaginal discharge , Nausea, Vomiting, Diarrhea, Sore throat, Decreased activity AAA Risk Factors: Reports: None Cardiac Risk Factors: Reports: None Ectopic Risk Factors: Reports: None Ovarian Torsion Risk Factors: Reports: None Surgical Obstruction Risk Factors: Reports: None Related Surgical History: Reports: JORGE ALBERTO Abdominal Findings: Absent: Pulsatile mass, Abdominal distention, Unequal femoral pulses, Rebound tenderness Differential Diagnoses: Hepatitis, Ovarian Cyst Review of Systems - Review Of Systems Constitutional: Reports: No symptoms Eyes: Reports: No symptoms Ears, Nose, Mouth, Throat: Reports: No symptoms Respiratory: Reports: No symptoms Cardiac: Reports: No symptoms GI: Reports: Abdominal pain : Reports: No symptoms Musculoskeletal: Reports: No symptoms Skin: Reports: No symptoms Neurological: Reports: No symptoms Endocrine: Reports: No symptoms Hematologic/Lymphatic: Reports: No symptoms All Other Systems: Reviewed and Negative Past Medical History - Past Medical History Previously Healthy: No Endocrine: Reports: None Cardiovascular: Reports: None Respiratory: Reports: None Hematological: Reports: None Gastrointestinal: Reports: Other (bowel obstruction history) Genitourinary: Reports: None Neuro/Psych: Reports: Migraine (05/28/[address] head), Anxiety, Depression, Bipolar Disorder Musculoskeletal: Reports: None Cancer: Reports: None Last Menstrual Period: PT HAS HAD A HYSTERECTOMY Other Pertinent Past Medical History: fibromyalgia - Surgical History General Surgical History: Reports: , Other (BOWEL OBSTRUCTION, SMALL INTESTINE PARTIALLY REMOVED). Denies: Hysterectomy ( ablation ) - Family History Family History: Reports: Unknown - Social History Smoking Status: Former smoker Hx Substance Use: No Alcohol Screening: Occasionally - Immunizations Tetanus Shot up to Date: (UNKNOWN) Physical Exam - Physical Exam Appearance: Ill-appearing, Thin Pain Distress: Mild Eyes: LANCE, EOMI, Conjunctiva clear ENT: Ears normal, Nose normal, Oropharynx normal Respiratory: Airway patent, Breath sounds clear, Breath sounds equal, Respirations nonlabored Cardiovascular: RRR, Pulses normal, No rub, No murmur GI/: Tender Musculoskeletal: Normal strength, ROM intact, No edema, No calf tenderness Skin: Warm, Dry, Normal color Neurological: Sensation intact, Motor intact, Reflexes intact, Cranial nerves intact, Alert, Oriented Psychiatric: Affect appropriate, Mood appropriate Interpretation - Radiology Interpretation Radiology Interpretation By: Radiologist Radiology Results: Positive (hematoma) Exam Interpreted: CT Scan Critical Care Note - Critical Care Note Total Time (mins): 0 Course - Course Hematology/Chemistry: 08/22/16 21:00 08/22/16 21:00 Orders, Labs, Meds: Lab Review 08/22/16 08/22/16 20:54 21:00 WBC 8.04 RBC 4.18 L Hgb 12.7 Hct 37.2 MCV 89.0 MCH 30.4 MCHC 34.1 RDW Coeff of Gem 11.9 Plt Count 266 Immature Gran % (Auto) 0.7 Neut % (Auto) 77.4 Lymph % (Auto) 13.9 [place] % (Auto) 3.4 Eos % (Auto) 4.2 Baso % (Auto) 0.4 Immature Gran # (Auto) 0.1 Neut # 6.2 Lymph # 1.1 [place] # 0.3 L Eos # 0.3 Baso # 0.0 Sodium 144 Potassium 3.4 L Chloride 111 H Carbon Dioxide 23 Anion Gap 13.4 BUN 8 Creatinine 0.69 Estimated GFR (MDRD) 99.00 BUN/Creatinine Ratio 11.59 Glucose 96 Calcium 9.3 Total Bilirubin 0.22 AST 63 H ALT 51 Alkaline Phosphatase 57 Total Protein 6.6 Albumin 3.0 L Globulin 3.6 Albumin/Globulin Ratio 0.83 Urine Color Yellow Urine Clarity Clear Urine pH 5.5 Ur Specific Reading >=1.030 Urine Protein 1+ Urine Glucose (UA) Negative Urine Ketones Trace Urine Blood 3+ Urine Nitrite Negative Urine Bilirubin 1+ Urine Urobilinogen 0.2 Ur Leukocyte Esterase 1+ Urine Microscopic RBC 30-50 Urine Microscopic WBC 5-10 Ur Squamous Epith Cells 20-30 Urine Bacteria 2+ Orders Category Date Time Status CBC W/ AUTO DIFF Stat LAB 08/22/16 21:00 Completed COMPREHENSIVE METABOLIC PANEL Stat LAB 08/22/16 21:00 Completed URINALYSIS C & S IF INDICATED Stat LAB 08/22/16 20:54 Completed URINE CULTURE Routine LAB 08/22/16 21:16 Received Hydromorphone HCl/Pf [Dilaudid 2 mg/ml Syringe] MEDS 08/22/16 22:04 Discontinued 2 mg IM ONCE STA Meperidine HCl/Pf [Demerol 25 mg/ml Syringe] MEDS 08/22/16 20:56 Discontinued 25 mg IM ONCE STA Ondansetron HCl/Pf [Zofran 4 mg/2 ml] MEDS 08/22/16 20:56 Discontinued 4 mg IM ONCE STA Potassium Chloride [K-Dur] MEDS 08/22/16 21:57 Discontinued 40 meq PO ONCE STA CT ABDOMEN/PELVIS WO CONTRAST Stat RADS 08/22/16 20:52 Completed Medications Discontinued Medications Generic Name Dose Route Start Last Admin Trade Name Freq PRN Reason Stop Dose Admin Hydromorphone HCl 2 mg 08/22/16 22:04 Dilaudid 2 Mg/Ml Syringe IM 08/22/16 22:05 ONCE STA Meperidine HCl 25 mg 08/22/16 20:56 08/22/16 21:19 Demerol 25 Mg/Ml Syringe IM 08/22/16 20:57 25 mg ONCE STA Administration Ondansetron HCl 4 mg 08/22/16 20:56 08/22/16 21:19 Zofran 4 Mg/2 Ml IM 08/22/16 20:57 4 mg ONCE STA Administration Potassium Chloride 40 meq 08/22/16 21:57 K-Dur PO 08/22/16 21:58 ONCE STA Vital Signs: Temp Pulse Resp BP Pulse Ox 08/22/16 20:28 99.3 F 99 H 18 120/86 97 Departure - Departure Time of Disposition: 21:50 Disposition: HOME SELF-CARE Discharge Problem: Abdominal pain Instructions: Abdominal Pain (ED) Condition: Stable Pt referred to PMD for follow-up: Yes Additional Instructions: increase hydration high fibre diet if not better have f/u with PMD needs f/u with Surgeon, Dr Hampton, will see in office next week some time. patient has to call and make an appointment Allergies/Adverse Reactions: Allergies fluoxetine [From Prozac] Adverse Reaction (Verified 08/22/16 20:33) SUICIDAL haloperidol [From Haldol] Adverse Reaction (Verified 08/22/16 20:33) STROKE SYMPTOMS ketorolac tromethamine [From Toradol] Adverse Reaction (Verified 08/22/16 20:33) "MAKES ME MEAN" sumatriptan [From Imitrex] Adverse Reaction (Verified 08/22/16 20:33) PANIC ATTACK SYMPTOMS Home Medications: Ambulatory Orders Topiramate [Topamax] 25 mg PO DAILY 07/21/16 Disposition Discussed With: Patient
[2016-08-22] MEDS ORDERED: DEMEROL 25 MG/ML SYRINGE IM STA (20:56)
[2016-08-22] MEDS ORDERED: ZOFRAN 4 MG/2 ML IM STA (20:56)
[2016-08-22 21:00] LABS: BILIRUBIN,URINE 1+ (NEGATIVE); KETONES,URINE Trace (NEGATIVE); LEUKOCYTE ESTERASE ,URINE 1+ (NEGATIVE); NITRITE,URINE Negative (NEGATIVE); PH,URINE 5.5 (5-9); PROTEIN,URINE 1+ (NEGATIVE); URINE, BLOOD 3+ (NEGATIVE)
[2016-08-22 21:11] LABS: BASOPHILS % (AUTO) 0.4 % (0.0-3.0); EOSINOPHILS # (AUTO) 0.3 K/ul (0.0-0.7); EOSINOPHILS % (AUTO) 4.2 % (0.0-7.0); HEMATOCRIT 37.2 % (37.0-47.0); HEMOGLOBIN 12.7 g/dl (12.0-16.0); IMMATURE GRANULOCYTE % (AUTO) 0.7 % (0.0-5.0); LYMPHOCYTES # (AUTO) 1.1 K/uL (0.60-3.4); LYMPHOCYTES % (AUTO) 13.9 (10.0-50.0); MEAN CORPUSCULAR HEMOGLOBIN 30.4 pg (27.0-31.0); MEAN CORPUSCULAR HGB CONC 34.1 (31.8-35.4); MONOCYTES # (AUTO) 0.3 K/uL (0.4-2.0); MONOCYTES % (AUTO) 3.4 (0-10); NEUTROPHILS # (AUTO) 6.2 K/ul (2.0-6.9); NEUTROPHILS % (AUTO) 77.4; PLATELET COUNT 266 10^3/uL (140-440); RED BLOOD COUNT 4.18 10^6/ul (4.20-5.40); WHITE BLOOD COUNT 8.04 K/ul (4.6-10.2)
[2016-08-22 21:11] LABS: ADD URINE MICROSCOPIC YES
[2016-08-22 21:16] LABS: BACTERIA,URINE 2+ (NOT PRESENT)
[2016-08-22 21:30] LABS: ALBUMIN/GLOBULIN RATIO 0.83; ANION GAP 13.4; BILIRUBIN,TOTAL 0.22 mg/dL (0.00-1.20); BUN/CREATININE RATIO 11.59; CALCIUM 9.3 mg/dL (8.2-10.2); CREATININE 0.69 mg/dL (0.60-1.30); POTASSIUM 3.4 mmol/L (3.5-5.10); TOTAL PROTEIN 6.6 g/dL (6.4-8.2)
--- NOTE | 2016-08-22 21:31 | CT ---
EXAM: CT of the abdomen and pelvis without contrast. HISTORY: Right-sided pain. Status post hysterectomy 1 week ago. PROCEDURE: Contiguous axial CT images of the abdomen and pelvis without contrast with coronal and s agittal reformats. FINDINGS: The liver, gallbladder, pancreas, spleen, adrenal glands and right kidney are normal in appearance. There is a 2 mm nonobstructive calcification in the left kidney. The abdominal aorta i s normal in appearance. There is a partial right colectomy. There is fecal stasis in the colon. N o bowel obstruction. No free fluid in the abdomen and pelvis. There is minimal free air in the lef t retroperitoneum. The bladder is decompressed which limits the evaluation. The uterus is not visu alized consistent with the patient's surgical history. There is ill-defined soft tissue density at the operative site measuring approximately 3.6 x 4.9 cm which may represent a hematoma. The bony str uctures are unremarkable. There is a moderate amount of subcutaneous air in the abdomen and pelvis and visualized portion of the right chest. There are bilateral breast implants. Impression: Status post hysterectomy with ill-defined soft tissue density at the operative site barbara suring approximately 3.6 x 4.9 cm which may represent a hematoma. Minimal free air in the left retroperitoneum probably related to the patient's surgery. Recommend co rrelation with history and further evaluation if clinically indicated. Partial right colectomy. Moderate amount of subcutaneous air in the abdomen, pelvis and visualized portion of the right chest . Recommend correlation with history and further evaluation if clinically indicated. Nonobstructive left nephrolithiasis as described.
[2016-08-22] MEDS ORDERED: K-DUR PO STA (21:57)
[2016-08-22] MEDS ORDERED: DILAUDID 2 MG/ML SYRINGE IM STA (22:04)
== END 2016-08-22 22:43 | disposition home or self-care (01) ==
LOC: ED 20:27
DX: R10.31 Right lower quadrant pain (principal); Z90.710 Acquired absence of both cervix and uterus; Z98.890 Other specified postprocedural states
CPT/HCPCS: 36415; 80053; 81001; 85025; 87086; 96372; 99283

== ENCOUNTER 2016-08-23 20:16 | Emergency (ER) ==
[2016-08-23 20:17] VITALS: BMI 20.2
[2016-08-23 20:23] VITALS: BP 113/77; TEMP 99.2
--- NOTE | 2016-08-23 20:36 | ED.PDOC ---
[id number] Came for the right side abdominal pain, was here yesterday for the same reason, ct showed hematoma, and surgeon suggested f/u as out patient Time Seen by Physician: 20:34 Mode of Arrival: Walk-In Information Source: Patient Primary Care Provider: ADOLFO SAMANIEGO Nursing and Triage Documentation Reviewed and Agree: Yes GI Complaint Exam - Abdominal Pain Complaint/Exam Onset: Gradual Symptoms Are: Still present Timing: Constant Initial Severity: Mild Current Severity: Moderate Location of Pain: RLQ Character: Reports: Dull, Aching Aggravating: Reports: None Alleviating: Reports: None Associated Signs and Symptoms: Denies: Diaphoresis, Fever, Cough, Chest pain, Dizziness, Back pain, Constipation, Blood in stool, Dysuria, Urinary frequency, Decreased urine output, Decreased appetite, Vaginal bleeding, Vaginal discharge , Nausea, Vomiting, Diarrhea, Sore throat, Decreased activity Related History: Reports: Similar episode AAA Risk Factors: Reports: None Cardiac Risk Factors: Reports: None Ectopic Risk Factors: Reports: None Ovarian Torsion Risk Factors: Reports: None Surgical Obstruction Risk Factors: Reports: None Related Surgical History: Reports: None Abdominal Findings: Absent: Pulsatile mass, Abdominal distention, Unequal femoral pulses, Rebound tenderness, Peritoneal signs Differential Diagnoses: Other (hematoma) Review of Systems - Review Of Systems Constitutional: Reports: No symptoms Eyes: Reports: No symptoms Ears, Nose, Mouth, Throat: Reports: No symptoms Respiratory: Reports: No symptoms Cardiac: Reports: No symptoms GI: Reports: Abdominal pain : Reports: No symptoms Musculoskeletal: Reports: No symptoms Skin: Reports: No symptoms Neurological: Reports: No symptoms Endocrine: Reports: No symptoms Hematologic/Lymphatic: Reports: No symptoms All Other Systems: Reviewed and Negative Past Medical History - Past Medical History Previously Healthy: No Endocrine: Reports: None Cardiovascular: Reports: None Respiratory: Reports: None Hematological: Reports: None Gastrointestinal: Reports: Other (bowel obstruction history) Genitourinary: Reports: None Neuro/Psych: Reports: Migraine (05/28/[address] head), Anxiety, Depression, Bipolar Disorder Musculoskeletal: Reports: None Cancer: Reports: None Last Menstrual Period: na Other Pertinent Past Medical History: fibromyalgia - Surgical History General Surgical History: Reports: , Other (BOWEL OBSTRUCTION, SMALL INTESTINE PARTIALLY REMOVED). Denies: Hysterectomy ( ablation ) - Family History Family History: Reports: Unknown - Social History Smoking Status: Former smoker Hx Substance Use: No Alcohol Screening: Occasionally - Immunizations Tetanus Shot up to Date: Yes Physical Exam - Physical Exam Appearance: Well-appearing, No pain distress, Well-nourished Eyes: LANCE, EOMI, Conjunctiva clear ENT: Ears normal, Nose normal, Oropharynx normal Respiratory: Airway patent, Breath sounds clear, Breath sounds equal, Respirations nonlabored Cardiovascular: RRR, Pulses normal, No rub, No murmur GI/: Soft, No masses, Bowel sounds normal, No Organomegaly, Tender (crepitus right side belly.) Musculoskeletal: Normal strength, ROM intact, No edema, No calf tenderness Skin: Warm, Dry, Normal color Neurological: Sensation intact, Motor intact, Reflexes intact, Cranial nerves intact, Alert, Oriented Psychiatric: Affect appropriate, Mood appropriate Interpretation - Radiology Interpretation Radiology Interpretation By: Radiologist Radiology Results: Negative Exam Interpreted: CT Scan Critical Care Note - Critical Care Note Total Time (mins): 0 Course - Course Hematology/Chemistry: 08/23/16 20:40 08/23/16 20:40 Orders, Labs, Meds: Lab Review 08/23/16 20:40 WBC 7.38 RBC 3.88 L Hgb 11.9 L Hct 34.5 L MCV 88.9 MCH 30.7 MCHC 34.5 RDW Coeff of Gem 12.0 Plt Count 288 Immature Gran % (Auto) 0.8 Neut % (Auto) 70.9 Lymph % (Auto) 19.4 [place] % (Auto) 4.7 Eos % (Auto) 3.7 Baso % (Auto) 0.5 Immature Gran # (Auto) 0.1 Neut # 5.2 Lymph # 1.4 [place] # 0.4 Eos # 0.3 Baso # 0.0 Sodium 146 H Potassium 3.9 Chloride 114 H Carbon Dioxide 23 Anion Gap 12.9 BUN 8 Creatinine 0.61 Estimated GFR (MDRD) 114.00 BUN/Creatinine Ratio 13.11 Glucose 97 Calcium 9.1 Total Bilirubin 0.15 AST 23 D ALT 36 Alkaline Phosphatase 58 Total Protein 6.2 L Albumin 2.9 L Globulin 3.3 Albumin/Globulin Ratio 0.88 Orders Category Date Time Status CBC W/ AUTO DIFF Stat LAB 08/23/16 20:40 Completed COMPREHENSIVE METABOLIC PANEL Stat LAB 08/23/16 20:[address] ABDOMEN/PELVIS WO CONTRAST Stat RADS 08/23/16 20:33 Completed Vital Signs: Temp Pulse Resp BP Pulse Ox 08/23/16 20:17 99.2 F 94 H 20 113/77 98 Departure - Departure Time of Disposition: 21:35 Disposition: HOME SELF-CARE Discharge Problem: Hematoma Abdominal wall hematoma Qualifiers: Encounter type: subsequent encounter Qualifier Code: (S30.1XXD) Contusion of abdominal wall, subsequent encounter Instructions: Hematoma (ED) Condition: Stable Pt referred to PMD for follow-up: Yes Additional Instructions: WARM COMPRESS KEEP F/U WITH SURGEON, CAN TAKE TYLENOL OR IBUPROFEN PRN Allergies/Adverse Reactions: Allergies fluoxetine [From Prozac] Adverse Reaction (Verified 08/22/16 20:33) SUICIDAL haloperidol [From Haldol] Adverse Reaction (Verified 08/22/16 20:33) STROKE SYMPTOMS ketorolac tromethamine [From Toradol] Adverse Reaction (Verified 08/22/16 20:33) "MAKES ME MEAN" sumatriptan [From Imitrex] Adverse Reaction (Verified 08/22/16 20:33) PANIC ATTACK SYMPTOMS Home Medications: Ambulatory Orders Topiramate [Topamax] 25 mg PO DAILY 07/21/16 Disposition Discussed With: Patient
[2016-08-23 20:45] LABS: BASOPHILS % (AUTO) 0.5 % (0.0-3.0); EOSINOPHILS # (AUTO) 0.3 K/ul (0.0-0.7); EOSINOPHILS % (AUTO) 3.7 % (0.0-7.0); HEMATOCRIT 34.5 % (37.0-47.0); HEMOGLOBIN 11.9 g/dl (12.0-16.0); IMMATURE GRANULOCYTE % (AUTO) 0.8 % (0.0-5.0); LYMPHOCYTES # (AUTO) 1.4 K/uL (0.60-3.4); LYMPHOCYTES % (AUTO) 19.4 (10.0-50.0); MEAN CORPUSCULAR HEMOGLOBIN 30.7 pg (27.0-31.0); MEAN CORPUSCULAR HGB CONC 34.5 (31.8-35.4); MEAN CORPUSCULAR VOLUME 88.9 fl (81.0-99.0); MONOCYTES # (AUTO) 0.4 K/uL (0.4-2.0); MONOCYTES % (AUTO) 4.7 (0-10); NEUTROPHILS # (AUTO) 5.2 K/ul (2.0-6.9); NEUTROPHILS % (AUTO) 70.9; PLATELET COUNT 288 10^3/uL (140-440); RED BLOOD COUNT 3.88 10^6/ul (4.20-5.40); WHITE BLOOD COUNT 7.38 K/ul (4.6-10.2)
[2016-08-23 21:04] LABS: ALBUMIN 2.9 g/dL (3.4-5.0); ALBUMIN/GLOBULIN RATIO 0.88; ANION GAP 12.9; BILIRUBIN,TOTAL 0.15 mg/dL (0.00-1.20); BUN/CREATININE RATIO 13.11; CALCIUM 9.1 mg/dL (8.2-10.2); CREATININE 0.61 mg/dL (0.60-1.30); POTASSIUM 3.9 mmol/L (3.5-5.10); TOTAL PROTEIN 6.2 g/dL (6.4-8.2)
--- NOTE | 2016-08-23 21:05 | CT ---
EXAM: CT of the abdomen and pelvis without contrast. HISTORY: Abdominal pain. Status post hysterectomy 1 week ago. PROCEDURE: Contiguous axial CT images of the abdomen and pelvis without contrast with coronal and s agittal reformats. COMPARISON: CT abdomen/pelvis of 08/22/2016. FINDINGS: The liver, gallbladder, pancreas, spleen, adrenal glands and right kidney are normal in a ppearance. There is a nonobstructive calcification in the left kidney. The abdominal aorta is norm al in appearance. There is a partial right colectomy. The other visualized loops of bowel are norm al in appearance. There is no significant interval change in the minimal free air in the left retro peritoneum. No free intraperitoneal air. No free fluid in the abdomen or pelvis. The bladder is m inimally filled with no abnormality identified. The uterus is surgically absent with interval resol ution of the soft tissue density at the operative site. There is no significant interval change in the subcutaneous air in the abdomen, pelvis and right chest. The bony structures are unremarkable. There are bilateral breast implants. Impression: Status post hysterectomy with interval resolution of the soft tissue density at the oper ative site as previously described. Please see report from CT abdomen/pelvis of 08/22/2016 for furt her details. Stable minimal left retroperitoneal air. Stable subcutaneous air in the abdomen, pelvis and right chest. Recommend correlation with history a nd further evaluation if clinically indicated. Partial right colectomy. Nonobstructive left nephrolithiasis.
== END 2016-08-23 21:32 | disposition home or self-care (01) ==
LOC: ED 20:16
DX: S30.1XXD Contusion of abdominal wall, subsequent encounter (principal); R10.31 Right lower quadrant pain
CPT/HCPCS: 36415; 80053; 85025; 99282

== ENCOUNTER 2016-08-30 22:07 | Emergency (ER) ==
[2016-08-30 22:13] VITALS: BP 99/68; TEMP 99.6; BMI 19.8
[2016-08-30] MEDS ORDERED: DILAUDID 2 MG/ML SYRINGE IM STA (22:21)
[2016-08-30] MEDS ORDERED: PHENERGAN 25 MG/ML VIAL IM STA (22:21)
--- NOTE | 2016-08-30 22:40 | ED.PDOC ---
[id number] 4d priti got a bad migraine--caused by my moms drama Time Seen by Physician: 22:10 Mode of Arrival: Walk-In Information Source: Patient Exam Limitations: No limitations Primary Care Provider: ADOLFO SAMANIEGO Nursing and Triage Documentation Reviewed and Agree: Yes Neurological Complaint Exam - Headache Complaint/Exam Onset: Gradual Duration: several hours Symptoms Are: Still present Timing: Constant Worst Headache Ever: No Initial Severity: Moderate Current Severity: Moderate Location: Diffuse Character: Reports: Dull, Throbbing, Pressure, Typical headache, Migraine Aggravating: Reports: Bright lights Alleviating: Reports: Position change Associated Signs and Symptoms: Reports: Nausea, Vomiting. Denies: Dizziness, Seizure, Sinus pressure, Fever, Neck pain, Neck stiffness, Decreased LOC, Visual changes Related History: Reports: Similar episode Related Surgical History: Reports: None SAH Risk Factors: Reports: None Meningitis Risk Factors: Reports: None SDH Risk Factors: Reports: None Temporal Arteritis Risk Factors: Reports: Female, Normal Head CT Within Last 12 Months: Yes Fundoscopic Exam: Present: Normal Findings Papilledema Present: No Temporal Artery Tenderness: Present: None Sinus Tenderness: Present: None TMJ Tenderness: Present: None Glascow Coma Scale (see protocol): 15 Meningeal Signs Positive: No Pain on Passive Flexion-Positive Kernig's: No ROM Limited In: No Limitiations Focal Weakness: Present: None Focal Sensory Loss: Present: None Gait: Normal Nystagmus Present: No Gag Reflex Present: Yes Romberg Test Positive: No Babinski Sign: Negative Right, Negative Left Heel to Toe Normal: Yes Differential Diagnoses: Migraine Review of Systems - Review Of Systems Constitutional: Reports: No symptoms Eyes: Reports: No symptoms Ears, Nose, Mouth, Throat: Reports: No symptoms Respiratory: Reports: No symptoms Cardiac: Reports: No symptoms GI: Reports: No symptoms : Reports: No symptoms Musculoskeletal: Reports: No symptoms Skin: Reports: No symptoms Neurological: Reports: Headache Endocrine: Reports: No symptoms Hematologic/Lymphatic: Reports: No symptoms All Other Systems: Reviewed and Negative Past Medical History - Past Medical History Previously Healthy: No Endocrine: Reports: None Cardiovascular: Reports: None Respiratory: Reports: None Hematological: Reports: None Gastrointestinal: Reports: Other (bowel obstruction history) Genitourinary: Reports: None Neuro/Psych: Reports: Migraine (11/3/[address] head), Anxiety, Depression, Bipolar Disorder Musculoskeletal: Reports: None Cancer: Reports: None Last Menstrual Period: hyst. Other Pertinent Past Medical History: fibromyalgia - Surgical History General Surgical History: Reports: , Other (BOWEL OBSTRUCTION, SMALL INTESTINE PARTIALLY REMOVED). Denies: Hysterectomy ( ablation ) - Family History Family History: Reports: Unknown - Social History Smoking Status: Former smoker Hx Substance Use: No Alcohol Screening: Occasionally - Immunizations Tetanus Shot up to Date: Yes Physical Exam - Physical Exam Appearance: Well-appearing, Well-nourished Pain Distress: Moderate Eyes: LANCE, EOMI, Conjunctiva clear ENT: Ears normal, Nose normal, Oropharynx normal Neck: Supple Respiratory: Airway patent, Breath sounds clear, Breath sounds equal, Respirations nonlabored Cardiovascular: RRR GI/: Tender Musculoskeletal: Normal strength Skin: Warm Neurological: Sensation intact Psychiatric: Affect appropriate, Mood appropriate Critical Care Note - Critical Care Note Total Time (mins): 0 Course - Course Orders, Labs, Meds: Orders Category Date Time Status Hydromorphone HCl/Pf [Dilaudid 2 mg/ml Syringe] MEDS 08/30/16 22:21 Discontinued 2 mg IM ONCE STA Promethazine HCl [Phenergan 25 mg/ml Vial] MEDS 08/30/16 22:21 Discontinued 25 mg IM ONCE STA Medications Discontinued Medications Generic Name Dose Route Start Last Admin Trade Name Laura PRN Reason Stop Dose Admin Hydromorphone HCl 2 mg 08/30/16 22:21 08/30/16 22:52 Dilaudid 2 Mg/Ml Syringe IM 08/30/16 22:22 2 mg ONCE STA Administration Promethazine HCl 25 mg 08/30/16 22:21 08/30/16 22:54 Phenergan 25 Mg/Ml Vial IM 08/30/16 22:22 25 mg ONCE STA Administration Vital Signs: Temp Pulse Resp BP Pulse Ox 08/30/16 22:07 99.6 F 108 H 20 99/68 96 Departure - Departure Time of Disposition: 22:40 Disposition: HOME SELF-CARE Discharge Problem: Migraine Instructions: Migraine Headache (ED) Condition: Good Pt referred to PMD for follow-up: Yes Additional Instructions: f/u neurology Allergies/Adverse Reactions: Allergies fluoxetine [From Prozac] Adverse Reaction (Verified 08/30/16 22:13) SUICIDAL haloperidol [From Haldol] Adverse Reaction (Verified 08/30/16 22:13) STROKE SYMPTOMS ketorolac tromethamine [From Toradol] Adverse Reaction (Verified 08/30/16 22:13) "MAKES ME MEAN" sumatriptan [From Imitrex] Adverse Reaction (Verified 08/30/16 22:13) PANIC ATTACK SYMPTOMS Home Medications: Ambulatory Orders Topiramate [Topamax] 25 mg PO DAILY 07/21/16 Disposition Discussed With: Patient, Family
== END 2016-08-30 23:29 | disposition home or self-care (01) ==
LOC: ED 22:07
DX: G43.909 Migraine, unspecified, not intractable, without status migrainosus (principal)
CPT/HCPCS: 96372; 99283

== ENCOUNTER 2016-09-05 19:50 | Emergency (ER) ==
[2016-09-05 19:57] VITALS: BP 107/75; TEMP 99.3; BMI 20.7
[2016-09-05] MEDS ORDERED: SODIUM CHLORIDE 1,000 ML IV STA ×2 (20:00→22:07)
[2016-09-05] MEDS ORDERED: PHENERGAN 25 MG/ML VIAL 25 MG in SODIUM CHLORIDE 50 ML IV STA (20:01)
[2016-09-05] MEDS ORDERED: DEMEROL 50 MG/ML SYRINGE IVP STA (20:01)
[2016-09-05] MEDS ORDERED: PHENERGAN 25 MG/ML VIAL ONE (20:06)
[2016-09-05 20:15] LABS: BASOPHILS % (AUTO) 0.5 % (0.0-3.0); EOSINOPHILS # (AUTO) 0.1 K/ul (0.0-0.7); EOSINOPHILS % (AUTO) 1.3 % (0.0-7.0); HEMATOCRIT 40.1 % (37.0-47.0); IMMATURE GRANULOCYTE % (AUTO) 0.3 % (0.0-5.0); LYMPHOCYTES # (AUTO) 1.6 K/uL (0.60-3.4); LYMPHOCYTES % (AUTO) 24.8 (10.0-50.0); MEAN CORPUSCULAR HEMOGLOBIN 30.1 pg (27.0-31.0); MEAN CORPUSCULAR HGB CONC 34.9 (31.8-35.4); MEAN CORPUSCULAR VOLUME 86.2 fl (81.0-99.0); MONOCYTES # (AUTO) 0.3 K/uL (0.4-2.0); MONOCYTES % (AUTO) 4.8 (0-10); NEUTROPHILS # (AUTO) 4.3 K/ul (2.0-6.9); NEUTROPHILS % (AUTO) 68.3; PLATELET COUNT 286 10^3/uL (140-440); RED BLOOD COUNT 4.65 10^6/ul (4.20-5.40); WHITE BLOOD COUNT 6.24 K/ul (4.6-10.2)
[2016-09-05 20:34] LABS: FLU INTERNAL QC INTERNAL QC VALID; RAPID FLU A NEGATIVE (NEGATIVE); RAPID FLU B NEGATIVE (NEGATIVE)
[2016-09-05 20:35] LABS: ALBUMIN 3.9 g/dL (3.4-5.0); ALBUMIN/GLOBULIN RATIO 1.22; ANION GAP 11.6; BILIRUBIN,TOTAL 0.32 mg/dL (0.00-1.20); BUN/CREATININE RATIO 14.06; CALCIUM 9.7 mg/dL (8.2-10.2); CREATININE 0.64 mg/dL (0.60-1.30); POTASSIUM 3.6 mmol/L (3.5-5.10); TOTAL PROTEIN 7.1 g/dL (6.4-8.2)
--- NOTE | 2016-09-05 20:49 | DI ---
EXAM: Abdomen one-view HISTORY: Diarrhea FINDINGS: Normal bowel gas pattern. No pathologic calcifications. No large free intraperitoneal g as. No abundance of retained colonic stool. Skeleton appears normal. IMPRESSION: Negative exam.
[2016-09-05 20:50] LABS: ERYTHROCYTE SEDIMENTATION RATE 13 mm/hr (0-20); ESR INTERNAL QC INTERNAL QC VALID
[2016-09-05] MEDS ORDERED: DILAUDID 1 MG/ML SYRINGE IVP STA (22:07)
[2016-09-05 23:08] LABS: ADD URINE MICROSCOPIC YES; BILIRUBIN,URINE Negative (NEGATIVE); KETONES,URINE Trace (NEGATIVE); LEUKOCYTE ESTERASE ,URINE Negative (NEGATIVE); NITRITE,URINE Negative (NEGATIVE); PROTEIN,URINE Negative (NEGATIVE); URINE, BLOOD 2+ (NEGATIVE)
--- NOTE | 2016-09-05 23:16 | ED.PDOC ---
General ED Provider: Dr. ADOLFO SAMANIEGO-ER Chief Complaint: Nausea/Vomiting Stated Complaint: since i ate and steak and shake--priti had vomiting and diarrhea Time Seen by Physician: 19:55 Mode of Arrival: Walk-In Information Source: Patient Exam Limitations: No limitations Primary Care Provider: ADOLFO SAMANIEGO Nursing and Triage Documentation Reviewed and Agree: Yes GI Complaint Exam - Vomiting/Diarrhea Complaint/Exam Onset/Duration: 24hrs Symptoms Are: Still present Initial Severity: Mild Current Severity: Mild Character of Vomiting: Reports: Non-bilious Character of Diarrhea: Reports: Watery Aggravating: Reports: None Alleviating: Reports: None Associated Signs and Symptoms: Reports: Abdominal pain, Cramping Recent Positive Test: No Use of Oral Contraceptives: No Use of Depoprovera: No Compliant With Contraceptive Use: No Non-GI Risk Factors: Reports: None Surgical Obstruction Risk Factors: Reports: Prior abdominal surgery Related Surgical History: Reports: Cholecystectomy, Appendectomy Abdominal Findings: Present: None Kussmaul Respirations Present: No Differential Diagnoses: Dehydration, Viral Gastroenteritis, Bacterial Gastroenteritis, UTI Review of Systems - Review Of Systems Constitutional: Reports: No symptoms Eyes: Reports: No symptoms Ears, Nose, Mouth, Throat: Reports: No symptoms Respiratory: Reports: No symptoms Cardiac: Reports: No symptoms GI: Reports: Abdominal pain, Diarrhea, Nausea, Vomiting : Reports: No symptoms Musculoskeletal: Reports: No symptoms Skin: Reports: No symptoms Neurological: Reports: No symptoms Endocrine: Reports: No symptoms Hematologic/Lymphatic: Reports: No symptoms All Other Systems: Reviewed and Negative Past Medical History - Past Medical History Previously Healthy: No Endocrine: Reports: None Cardiovascular: Reports: None Respiratory: Reports: None Hematological: Reports: None Gastrointestinal: Reports: Other (bowel obstruction history) Genitourinary: Reports: None Neuro/Psych: Reports: Migraine (05/28/[address] head), Anxiety, Depression, Bipolar Disorder Musculoskeletal: Reports: None Cancer: Reports: None Last Menstrual Period: PT HAS HAD A HYSTERECTOMY Other Pertinent Past Medical History: fibromyalgia - Surgical History General Surgical History: Reports: , Other (BOWEL OBSTRUCTION, SMALL INTESTINE PARTIALLY REMOVED). Denies: Hysterectomy ( ablation ) - Family History Family History: Reports: Unknown - Social History Smoking Status: Former smoker Hx Substance Use: No Alcohol Screening: Occasionally Lives: With family - Immunizations Tetanus Shot up to Date: Yes Physical Exam - Physical Exam Appearance: Well-appearing, No pain distress, Well-nourished Pain Distress: Moderate Eyes: LANCE ENT: Ears normal, Nose normal, Oropharynx normal Neck: Supple Respiratory: Airway patent Cardiovascular: RRR GI/: Soft, Nontender, No masses, Bowel sounds normal, No Organomegaly Musculoskeletal: Normal strength, ROM intact, No edema, No calf tenderness Skin: Warm Neurological: Sensation intact Psychiatric: Affect appropriate, Mood appropriate Interpretation - Radiology Interpretation Radiology Interpretation By: Radiologist Radiology Results: Negative Re-Evaluation - Re-Evaluation Time of Re-Evaluation: 23:16 Status: Improved (no vomiting or diarrhea since being in the e.d.) Vital Signs Stable: Yes Pain Level: 1 Appearance: NAD Lungs: Clear Skin: Warm and Dry Neuro: Alert and Oriented X3 CV: RRR Critical Care Note - Critical Care Note Total Time (mins): 0 Course - Course Hematology/Chemistry: 09/05/16 20:05 09/05/16 20:05 Orders, Labs, Meds: Lab Review 09/05/16 09/05/16 20:05 23:03 WBC 6.24 RBC 4.65 Hgb 14.0 Hct 40.1 MCV 86.2 MCH 30.1 MCHC 34.9 RDW Coeff of Gem 12.9 Plt Count 286 Immature Gran % (Auto) 0.3 Neut % (Auto) 68.3 Lymph % (Auto) 24.8 Har[place]on % (Auto) 4.8 Eos % (Auto) 1.3 Baso % (Auto) 0.5 Immature Gran # (Auto) 0.0 Neut # 4.3 Lymph # 1.6 Haralson # 0.3 L Eos # 0.1 Baso # 0.0 ESR 13 Sodium 142 Potassium 3.6 Chloride 106 Carbon Dioxide 28 Anion Gap 11.6 BUN 9 Creatinine 0.64 Estimated GFR (MDRD) 108.00 BUN/Creatinine Ratio 14.06 Glucose 110 Calcium 9.7 Total Bilirubin 0.32 AST 12 L ALT 8 L Alkaline Phosphatase 54 Total Protein 7.1 Albumin 3.9 Globulin 3.2 Albumin/Globulin Ratio 1.22 Amylase 36 Lipase 17 Urine Color Yellow Urine Clarity Slightly Urine pH 7.0 Ur Specific Points 1.020 Urine Protein Negative Urine Glucose (UA) Negative Urine Ketones Trace Urine Blood 2+ Urine Nitrite Negative Urine Bilirubin Negative Urine Urobilinogen 0.2 Ur Leukocyte Esterase Negative Ur Squamous Epith Cells Pending Influenza A (Rapid) Negative Influenza B (Rapid) Negative Orders Category Date Time Status C-DIFF MONITORING (NURSING) BID CARE 09/05/16 20:00 Active IV [ED IV/MEDIPORT/POWERPORT] .ONCE EMERGENCY 09/05/16 20:00 Active AMYLASE Stat LAB 09/05/16 20:05 Completed BLOOD CULTURE Stat LAB 09/05/16 20:05 Received CBC W/ AUTO DIFF Stat LAB 09/05/16 20:05 Completed COMPREHENSIVE METABOLIC PANEL Stat LAB 09/05/16 20:05 Completed ESR Stat LAB 09/05/16 20:05 Completed LIPASE Stat LAB 09/05/16 20:05 Completed RAPID FLU A/B Stat LAB 09/05/16 20:05 Completed STOOL CULTURE Stat LAB 09/05/16 Ordered URINALYSIS C & S IF INDICATED Stat LAB 09/05/16 23:03 Results cdiff [C. DIFFICILE] Routine LAB 09/05/16 20:00 Uncollected 0.9 % Sodium Chloride [Saline Flush] MEDS 09/05/16 20:00 Ordered 1 syr IVF PRN PRN Hydromorphone HCl [Dilaudid 1 mg/ml Syringe] MEDS 09/05/16 22:07 Discontinued 0.5 mg IVP ONCE STA Meperidine HCl/Pf [Demerol 50 mg/ml Syringe] MEDS 09/05/16 20:01 Discontinued 50 mg IVP ONCE STA Promethazine HCl [Phenergan 25 mg/ml Vial] MEDS 09/05/16 20:06 Discontinued 25 mg .ROUTE .STK-MED ONE Promethazine HCl [Phenergan 25 mg/ml Vial] 25 mg MEDS 09/05/16 20:01 Discontinued 0.9 % Sodium Chloride [Sodium Chloride] 50 ml IV ONCE Sodium Chloride 0.9% [Sodium Chloride] 1,000 ml MEDS 09/05/16 20:00 Discontinued IV BOLUS Sodium Chloride 0.9% [Sodium Chloride] 1,000 ml MEDS 09/05/16 22:07 Discontinued IV BOLUS ABDOMEN 1 VIEW Stat RADS 09/05/16 20:02 Completed Medications Generic Name Dose Route Start Last Admin Trade Name Freq PRN Reason Stop Dose Admin Sodium Chloride 1 syr 09/05/16 20:00 09/05/16 20:26 Saline Flush IVF 1 syr PRN PRN Administration To flush IV Discontinued Medications Generic Name Dose Route Start Last Admin Trade Name Laura PRN Reason Stop Dose Admin Hydromorphone HCl 0.5 mg 09/05/16 22:07 09/05/16 22:17 Dilaudid 1 Mg/Ml Syringe IVP 09/05/16 22:08 0.5 mg ONCE STA Administration Sodium Chloride 1,000 mls @ 1,000 mls/hr 09/05/16 20:00 09/05/16 20:20 Sodium Chloride IV 09/05/16 20:59 1,000 mls/hr BOLUS STA Administration Promethazine HCl 25 mg/ Sodium 51 mls @ 75 mls/hr 09/05/16 20:01 09/05/16 20: 22 Chloride IV 09/05/16 20:41 75 mls/hr ONCE STA Administration Sodium Chloride 1,000 mls @ 1,000 mls/hr 09/05/16 22:07 09/05/16 22:10 Sodium Chloride IV 09/05/16 23:06 1,000 mls/hr BOLUS STA Administration Meperidine HCl 50 mg 09/05/16 20:01 09/05/16 20:22 Demerol 50 Mg/Ml Syringe IVP 09/05/16 20:02 50 mg ONCE STA Administration Vital Signs: Temp Pulse Resp BP Pulse Ox 09/05/16 19:51 99.3 F 104 H 20 107/75 98 Departure - Departure Time of Disposition: 23:16 Disposition: HOME SELF-CARE Discharge Problem: Enteritis Instructions: Enteritis (ED) Condition: Good Pt referred to PMD for follow-up: Yes Additional Instructions: clear liquids --f/u prn Allergies/Adverse Reactions: Allergies fluoxetine [From Prozac] Adverse Reaction (Verified 09/05/16 19:57) SUICIDAL haloperidol [From Haldol] Adverse Reaction (Verified 09/05/16 19:57) STROKE SYMPTOMS ketorolac tromethamine [From Toradol] Adverse Reaction (Verified 09/05/16 19:57) "MAKES ME MEAN" sumatriptan [From Imitrex] Adverse Reaction (Verified 09/05/16 19:57) PANIC ATTACK SYMPTOMS Home Medications: Ambulatory Orders Topiramate [Topamax] 25 mg PO DAILY 07/21/16 Disposition Discussed With: Patient
[2016-09-05 23:18] LABS: BACTERIA,URINE 1+ (NOT PRESENT)
== END 2016-09-05 23:28 | disposition home or self-care (01) ==
LOC: ED 19:50
DX: K52.9 Noninfective gastroenteritis and colitis, unspecified (principal)
CPT/HCPCS: 36415; 80053; 81001; 82150; 83690; 85025; 85651; 87040; 87086; 87804; 96361; 96365; 96375; 99283